=== PATIENT | male | born 2005 | race African-American/Black ===

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

== ENCOUNTER 2023-03-10 12:17 | Emergency (ER) | payer OTHER, SELFPAY ==
[2023-03-10 12:19] VITALS: BP 126/67; PULSE 77; RESP 16; TEMP 36.9; O2SAT 99
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
== END 2023-03-10 15:37 | disposition home or self-care (01) ==
PROVIDERS: Emergency Provider Physician Assistant; PCP Pediatrics
DX: S61.412A Laceration without foreign body of left hand, initial encounter (principal); W26.9XXA Contact with unspecified sharp object(s), initial encounter
CPT/HCPCS: 90471; 99284